=== PATIENT | male | born 1995 | race Caucasian/White ===

== ENCOUNTER 2017-03-25 02:16 | Inpatient (IN) ==
[2017-03-25] MEDS ORDERED: SODIUM CHLORIDE 0.9% 1,000 ML IV STA (03:28)
[2017-03-25] MEDS ORDERED: MORPHINE 2 MG/1 ML SYRINGE IV STA (03:28)
[2017-03-25] MEDS ORDERED: ONDANSETRON 4 MG/2 ML VIAL IV STA (03:28)
[2017-03-25] MEDS ORDERED: MORPHINE 2 MG/1 ML SYRINGE IV PRN ×2 (03:29→09:02)
[2017-03-25 03:53] LABS: Basophils % 0.3 % (0.0-0.8); Eosinophils % 0.1 % (0.00-10.9); Hematocrit 43.9 VOL% (42.0-52.0); Hemoglobin 15.3 GM/DL (14.0-18.0); Immature Granulocytes % 0.2 %; Immature Granulocytes Absolute 0.02 #; Lymphocytes % 15.9 % (21.2-54.2); Mean Corpuscular HGB Conc 34.9 GM/DL (32-36); Mean Corpuscular Hemoglobin 32 PG (27-34); Mean Corpuscular Volume 91.8 FL (87-102); Mean Platelet Volume 8.9 FL (9.6-12.0); Monocytes # 0.7 10*3/uL (0.11-0.8); Monocytes % 5.3 % (1.7-12.7); Neutrophils # 9.7 10*3/uL (1.4-7.4); Neutrophils % 78.2 % (38.7-73.9); Platelet Count 230 T/CUMM (130-400); Red Blood Count 4.78 MC/CUMM (3.8-5.5); Red Cell Distribution Width 12.5 % (9.3-17.3); White Blood Count 12.4 T/CUMM (4-12)
[2017-03-25 04:09] LABS: Lactic Acid 0.8 MMOL/L (0.4-2.0)
[2017-03-25 04:16] LABS: Albumin 3.9 G/DL (3.4-5.0); Bilirubin,Total 0.4 MG/DL (0.2-1.0); Osmolality,Calculated 279.4 MOS/KG (273-304); Potassium 3.9 MMOL/L (3.5-5.1); Total Protein 6.9 G/DL (6.4-8.3)
[2017-03-25] MEDS: LACTATED RINGERS 1,000 ML IV SCH ×4 (04:37→19:41)
[2017-03-25] MEDS ORDERED: cefOXitin 2,000 MG in SYRINGE 1 EACH IV ONE (04:42)
[2017-03-25] MEDS ORDERED: BUPIVACAINE LIPOSOMAL 20 ML/266 MG VIAL ONE (05:48)
[2017-03-25] MEDS ORDERED: ONDANSETRON 4 MG/2 ML VIAL IV PRN (07:30)
[2017-03-25] MEDS ORDERED: HYDROmorphone 2 MG/1 ML VIAL ONE ×2 (07:34→08:01)
[2017-03-25] MEDS ORDERED: ONDANSETRON 4 MG/2 ML VIAL ONE (07:34)
[2017-03-25] MEDS ORDERED: DESFLURANE 1 UNIT/15 MINUTE INH ONE (07:39)
[2017-03-25] MEDS ORDERED: MIDAZOLAM 2 MG/2 ML VIAL ONE (07:39)
[2017-03-25] MEDS ORDERED: PROPOFOL 200 MG/20 ML VIAL IV ONE (07:39)
[2017-03-25] MEDS ORDERED: ACETAMINOPHEN 1,000 MG/100 ML VIAL IV ONE (07:40)
[2017-03-25] MEDS ORDERED: fentaNYL 100 MCG/2 ML VIAL ONE (07:40)
[2017-03-25] MEDS: HYDROmorphone 2 MG/1 ML VIAL IV PRN ×4 (07:40→07:55)
[2017-03-25] MEDS ORDERED: ROCURONIUM 100 MG/10 ML VIAL IV ONE (07:40)
[2017-03-25] MEDS ORDERED: GLYCOPYRROLATE 0.4 MG/2 ML VIAL ONE (07:40)
[2017-03-25] MEDS ORDERED: NEOSTIGMINE 10 MG/10 ML VIAL ONE (07:40)
[2017-03-25] MEDS ORDERED: KETOROLAC 30 MG/1 ML VIAL ONE (07:40)
[2017-03-25] MEDS ORDERED: SUCCINYLCHOLINE 200 MG/10 ML VIAL ONE (07:40)
[2017-03-25] MEDS ORDERED: DEXAMETHASONE 10 MG/1 ML VIAL ONE (07:40)
[2017-03-25] MEDS ORDERED: LACTATED RINGERS 1,000 ML IV ONE (07:41)
[2017-03-25] MEDS ORDERED: NALOXONE 0.4 MG/ML VIAL IV PRN (07:55)
[2017-03-25] MEDS ORDERED: MORPHINE 10 MG/1 ML VIAL ONE (07:56)
[2017-03-25] MEDS ORDERED: LORazepam 2 MG/1 ML VIAL ONE (08:02)
[2017-03-25] MEDS ORDERED: HYDROmorphone 2 MG/1 ML VIAL IV ONE (08:03)
[2017-03-25] MEDS ORDERED: LORazepam 2 MG/1 ML VIAL IV ONE ×2 (08:05→08:10)
[2017-03-25] MEDS ORDERED: HYDROmorphone PCA 30 MG/30 ML SYRINGE IV ONE (08:15)
[2017-03-25] MEDS: HYDROmorphone PCA 30 MG/30 ML SYRINGE IV SCH (08:19)
[2017-03-25 08:30] LABS: Apearance,Urine Slightly Hazy (Clear); Bilirubin,Urine Negative (Negative); Blood, Urine Negative (Negative); Glucose,Urine (UA) Negative (Negative); Ketones,Urine 5 mg/dL (Negative); Mucus,Urine Occasional /LPF (Occasional); Nitrite,Urine Negative (Negative); Protein,Urine Negative; RBC,Urine 2 /HPF (0-4); Urine Color Yellow (Yellow); Urine Specific Gravity 1.034 (1.001-1.035); Urine Urobilinogen < 2.0 EU/DL (0.2-1.0); WBC,Urine 1 /HPF (0-6)
[2017-03-25] MEDS: KETOROLAC 15 MG/1 ML VIAL IV SCH ×3 (10:19→21:14)
[2017-03-25] MEDS: PANTOPRAZOLE 40 MG TABLET PO SCH (10:51)
[2017-03-25] MEDS: fentaNYL 25 MCG/HR PATCH TRANSDERM SCH (11:57)
[2017-03-25] MEDS: MORPHINE 2 MG/1 ML SYRINGE IV PRN ×4 (12:25→22:51)
[2017-03-25] MEDS: HYOSCYAMINE 0.5 MG/1 ML AMP IV PRN ×2 (14:19→21:49)
[2017-03-25] MEDS: cefOXitin 2,000 MG in SYRINGE 1 EACH IV SCH (17:19)
[2017-03-26] MEDS: LACTATED RINGERS 1,000 ML IV SCH ×3 (00:15→20:38)
[2017-03-26] MEDS: cefOXitin 2,000 MG in SYRINGE 1 EACH IV SCH ×3 (01:31→20:01)
[2017-03-26] MEDS: MORPHINE 2 MG/1 ML SYRINGE IV PRN ×3 (01:32→06:44)
[2017-03-26] MEDS: KETOROLAC 15 MG/1 ML VIAL IV SCH ×4 (03:04→21:39)
[2017-03-26] MEDS: HYOSCYAMINE 0.5 MG/1 ML AMP IV PRN (03:05)
[2017-03-26] MEDS: ONDANSETRON 4 MG/2 ML VIAL IV PRN ×2 (03:05→08:30)
[2017-03-26 03:16] LABS: Basophils % 0.1 % (0.0-0.8); Hematocrit 27.4 VOL% (42.0-52.0); Immature Granulocytes % 0.1 %; Immature Granulocytes Absolute 0.01 #; Lymphocytes # 1.2 10*3/uL (1.4-4.0); Lymphocytes % 17.2 % (21.2-54.2); Mean Corpuscular HGB Conc 34.3 GM/DL (32-36); Mean Corpuscular Hemoglobin 32 PG (27-34); Mean Corpuscular Volume 93.8 FL (87-102); Mean Platelet Volume 9.4 FL (9.6-12.0); Monocytes # 0.6 10*3/uL (0.11-0.8); Monocytes % 8.1 % (1.7-12.7); Neutrophils # 5.2 10*3/uL (1.4-7.4); Neutrophils % 74.5 % (38.7-73.9); Platelet Count 218 T/CUMM (130-400); Red Blood Count 2.92 MC/CUMM (3.8-5.5)
[2017-03-26 03:18] LABS: Hemoglobin 9.4 GM/DL (14.0-18.0)
[2017-03-26 03:48] LABS: Calcium 8.5 MG/DL (8.5-10.1); Potassium 4.5 MMOL/L (3.5-5.1)
[2017-03-26] MEDS: HYDROmorphone PCA 30 MG/30 ML SYRINGE IV SCH ×2 (04:05→08:26)
[2017-03-26 06:46] LABS: Band Neutrophils 24 % (0-10); Hypochromasia Slight; Lymphocytes 20 % (20-55); Platelet Estimate Adequate; Segmented Neutrophils 50 % (50-85); Total Cells Counted 100
[2017-03-26] MEDS ORDERED: LACTATED RINGERS 2,000 ML IV ONE (08:05)
[2017-03-26] MEDS: PANTOPRAZOLE 40 MG TABLET PO SCH (10:12)
[2017-03-26] MEDS ORDERED: BUPIVACAINE 0.25% 50 ML VIAL ONE (11:10)
[2017-03-26] MEDS ORDERED: LIDOCAINE 1%/EPI INJ 20 ML VIAL ONE (11:10)
[2017-03-26] MEDS ORDERED: BENZOIN COMPOUND TINCTURE 58 ML BOTTLE TOP ONE (11:44)
[2017-03-26] MEDS ORDERED: LIDOCAINE 2% TOP JELLY 5 ML TUBE TOP ONE (12:30)
[2017-03-26] MEDS ORDERED: SEVOFLURANE 1 UNIT/15 MINUTE INH ONE (12:30)
[2017-03-26] MEDS ORDERED: MIDAZOLAM 2 MG/2 ML VIAL ONE (12:30)
[2017-03-26] MEDS ORDERED: PROPOFOL 200 MG/20 ML VIAL IV ONE (12:30)
[2017-03-26] MEDS ORDERED: fentaNYL 100 MCG/2 ML VIAL ONE (12:30)
[2017-03-26] MEDS ORDERED: ROCURONIUM 100 MG/10 ML VIAL IV ONE (12:31)
[2017-03-26] MEDS ORDERED: DEXAMETHASONE 10 MG/1 ML VIAL ONE (12:31)
[2017-03-26] MEDS ORDERED: KETOROLAC 30 MG/1 ML VIAL ONE (12:31)
[2017-03-26] MEDS ORDERED: PHENYLEPHRINE 0.5% NASAL SPRAY 15 ML BOTTLE BOTH NARES ONE (12:31)
[2017-03-26] MEDS ORDERED: LACTATED RINGERS 1,000 ML IV ONE (12:32)
[2017-03-26 12:52] LABS: ABG Base Excess 1.3 MMOL/L (-2.5-2.5); ABG HCO3 25.6 MMOL/L (20-26); ABG Oxygen Saturation 99.6 % (95-100); ABG PCO2 47.1 MM HG (35-48); ABG PH 7.365 (7.35-7.45); ABG TCO2 25.3 MMOL/L (23-27); Allen Test Positive; Pt O2 Delivery Device Ventilator
[2017-03-26] MEDS: PROPOFOL 1,000 MG/100 ML BOTTLE IV SCH ×3 (15:19→22:33)
[2017-03-26] MEDS ORDERED: cefOXitin 2,000 MG in SYRINGE 1 EACH IV SCH (20:00)
[2017-03-27] MEDS: PROPOFOL 1,000 MG/100 ML BOTTLE IV SCH ×4 (02:58→17:58)
[2017-03-27] MEDS: LACTATED RINGERS 1,000 ML IV SCH ×3 (03:34→20:43)
[2017-03-27 03:55] LABS: ABG Base Excess 5.9 MMOL/L (-2.5-2.5); ABG HCO3 29.8 MMOL/L (20-26); ABG Oxygen Saturation 99.7 % (95-100); ABG PH 7.481 (7.35-7.45); ABG TCO2 28.4 MMOL/L (23-27); Allen Test Positive; Pt O2 Delivery Device Ventilator
[2017-03-27] MEDS: HYDROmorphone PCA 30 MG/30 ML SYRINGE IV SCH ×3 (05:26→23:44)
[2017-03-27] MEDS: KETOROLAC 15 MG/1 ML VIAL IV SCH ×4 (05:29→23:43)
[2017-03-27 06:10] LABS: Basophils % 0.2 % (0.0-0.8); Eosinophils # 0.1 10*3/uL (0.0-0.87); Eosinophils % 1.5 % (0.00-10.9); Hemoglobin 6.8 GM/DL (14.0-18.0); Immature Granulocytes % 0.8 %; Immature Granulocytes Absolute 0.04 #; Lymphocytes # 1.5 10*3/uL (1.4-4.0); Lymphocytes % 28.2 % (21.2-54.2); Mean Corpuscular Hemoglobin 32 PG (27-34); Mean Corpuscular Volume 94.8 FL (87-102); Mean Platelet Volume 9.9 FL (9.6-12.0); Monocytes # 0.6 10*3/uL (0.11-0.8); Monocytes % 10.9 % (1.7-12.7); Neutrophils # 3.1 10*3/uL (1.4-7.4); Neutrophils % 58.4 % (38.7-73.9); Platelet Count 120 T/CUMM (130-400); Red Blood Count 2.11 MC/CUMM (3.8-5.5); Red Cell Distribution Width 13.2 % (9.3-17.3); White Blood Count 5.3 T/CUMM (4-12)
[2017-03-27 06:36] LABS: Band Neutrophils 12 % (0-10); Eosinophils 2 % (0-10); Hypochromasia 1+; Lymphocytes 30 % (20-55); Metamyelocytes 3 %; Segmented Neutrophils 45 % (50-85); Total Cells Counted 100
[2017-03-27 06:37] LABS: Microcytosis Slight; Platelet Estimate Adequate
[2017-03-27 06:54] LABS: Calcium 7.5 MG/DL (8.5-10.1); Osmolality,Calculated 280.4 MOS/KG (273-304); Potassium 4.2 MMOL/L (3.5-5.1)
[2017-03-27] MEDS ORDERED: SODIUM CHLORIDE 0.9% 1,000 ML IV PRN (07:05)
[2017-03-27] MEDS: PANTOPRAZOLE 40 MG VIAL IV SCH (10:54)
[2017-03-27] MEDS ORDERED: SEVOFLURANE 1 UNIT/15 MINUTE INH ONE (12:55)
[2017-03-27] MEDS ORDERED: fentaNYL 100 MCG/2 ML VIAL ONE (12:56)
[2017-03-27] MEDS ORDERED: SUFentanil 50 MCG/ML AMP ONE (12:56)
[2017-03-27] MEDS ORDERED: LACTATED RINGERS 1,000 ML IV ONE (12:56)
[2017-03-27] MEDS ORDERED: VECURONIUM 10 MG VIAL IV ONE (12:56)
[2017-03-27] MEDS ORDERED: MIDAZOLAM 10 MG/2 ML VIAL ONE (12:56)
[2017-03-27 16:35] LABS: ABG Base Excess 5.1 MMOL/L (-2.5-2.5); ABG HCO3 29.1 MMOL/L (20-26); ABG Oxygen Saturation 99.1 % (95-100); ABG PCO2 46.9 MM HG (35-48); ABG PH 7.419 (7.35-7.45); ABG TCO2 27.8 MMOL/L (23-27)
[2017-03-27] MEDS: MORPHINE 2 MG/1 ML SYRINGE IV PRN (17:18)
[2017-03-27 18:40] LABS: Hematocrit 27.7 VOL% (42.0-52.0); Hemoglobin 9.6 GM/DL (14.0-18.0)
[2017-03-28] MEDS: LACTATED RINGERS 1,000 ML IV SCH ×3 (03:33→14:14)
[2017-03-28 04:47] LABS: Basophils # 0.1 10*3/uL (0.0-0.2); Basophils % 0.8 % (0.0-0.8); Eosinophils # 0.1 10*3/uL (0.0-0.87); Eosinophils % 1.8 % (0.00-10.9); Hematocrit 28.9 VOL% (42.0-52.0); Hemoglobin 9.7 GM/DL (14.0-18.0); Immature Granulocytes Absolute 0.06 #; Lymphocytes # 1.2 10*3/uL (1.4-4.0); Lymphocytes % 19.9 % (21.2-54.2); Mean Corpuscular HGB Conc 33.6 GM/DL (32-36); Mean Corpuscular Hemoglobin 31 PG (27-34); Mean Platelet Volume 9.8 FL (9.6-12.0); Monocytes # 0.6 10*3/uL (0.11-0.8); NRBC # 0.02 10*3/uL; Neutrophils % 66.5 % (38.7-73.9); Platelet Count 165 T/CUMM (130-400); Red Blood Count 3.14 MC/CUMM (3.8-5.5); Red Cell Distribution Width 14.6 % (9.3-17.3)
[2017-03-28 05:15] LABS: Calcium 7.8 MG/DL (8.5-10.1)
[2017-03-28] MEDS: KETOROLAC 15 MG/1 ML VIAL IV SCH ×4 (05:24→22:13)
[2017-03-28 05:53] LABS: Band Neutrophils 12 % (0-10); Eosinophils 1 % (0-10); Hypochromasia 1+; Lymphocytes 20 % (20-55); Nucleated Red Blood Cells 2 (0-5); Segmented Neutrophils 59 % (50-85); Total Cells Counted 100
[2017-03-28 05:54] LABS: Platelet Estimate Adequate
[2017-03-28] MEDS: HYDROmorphone PCA 30 MG/30 ML SYRINGE IV SCH ×2 (08:18→16:45)
[2017-03-28] MEDS: PANTOPRAZOLE 40 MG VIAL IV SCH (10:04)
[2017-03-28] MEDS: fentaNYL 25 MCG/HR PATCH TRANSDERM SCH (10:15)
[2017-03-28] MEDS: ONDANSETRON 4 MG/2 ML VIAL IV PRN (13:50)
[2017-03-28] MEDS: PROPOFOL 1,000 MG/100 ML BOTTLE IV SCH (14:13)
[2017-03-28] MEDS: DEXT 5% NACL 0.45% KCL 20 MEQ 20 MEQ/1,000 ML BAG IV SCH (23:54)
[2017-03-29] MEDS: HYDROmorphone PCA 30 MG/30 ML SYRINGE IV SCH ×3 (02:35→15:11)
[2017-03-29] MEDS: DEXT 5% NACL 0.45% KCL 20 MEQ 20 MEQ/1,000 ML BAG IV SCH ×4 (02:53→16:41)
[2017-03-29] MEDS: ONDANSETRON 4 MG/2 ML VIAL IV PRN ×2 (04:01→20:16)
[2017-03-29] MEDS: KETOROLAC 15 MG/1 ML VIAL IV SCH ×4 (04:05→22:17)
[2017-03-29 07:11] LABS: Basophils % 0.7 % (0.0-0.8); Eosinophils # 0.1 10*3/uL (0.0-0.87); Eosinophils % 2.8 % (0.00-10.9); Hematocrit 28.5 VOL% (42.0-52.0); Hemoglobin 9.8 GM/DL (14.0-18.0); Immature Granulocytes % 1.4 %; Immature Granulocytes Absolute 0.06 #; Lymphocytes # 0.9 10*3/uL (1.4-4.0); Lymphocytes % 21.1 % (21.2-54.2); Mean Corpuscular HGB Conc 34.4 GM/DL (32-36); Mean Corpuscular Hemoglobin 31 PG (27-34); Mean Corpuscular Volume 90.5 FL (87-102); Mean Platelet Volume 9.2 FL (9.6-12.0); Monocytes # 1.2 10*3/uL (0.11-0.8); Monocytes % 28.1 % (1.7-12.7); Neutrophils % 45.9 % (38.7-73.9); Platelet Count 204 T/CUMM (130-400); Red Blood Count 3.15 MC/CUMM (3.8-5.5); Red Cell Distribution Width 13.6 % (9.3-17.3); White Blood Count 4.3 T/CUMM (4-12)
[2017-03-29 07:29] LABS: Osmolality,Calculated 276.5 MOS/KG (273-304); Potassium 4.2 MMOL/L (3.5-5.1)
[2017-03-29 07:43] LABS: Band Neutrophils 30 % (0-10); Eosinophils 3 % (0-10); Hypochromasia 1+; Lymphocytes 15 % (20-55); Platelet Estimate Adequate; Polychromasia Slight; Segmented Neutrophils 28 % (50-85); Total Cells Counted 100
[2017-03-29] MEDS: PANTOPRAZOLE 40 MG VIAL IV SCH (08:43)
[2017-03-29] MEDS: metroNIDAZOLE INJ 500 MG in PREMIX 1 EACH IV SCH ×2 (13:15→18:34)
[2017-03-29] MEDS: cefOXitin 2,000 MG in SYRINGE 1 EACH IV SCH ×2 (14:36→22:25)
[2017-03-30] MEDS: DEXT 5% NACL 0.45% KCL 20 MEQ 20 MEQ/1,000 ML BAG IV SCH ×4 (02:01→22:16)
[2017-03-30] MEDS: HYDROmorphone PCA 30 MG/30 ML SYRINGE IV SCH ×4 (02:08→21:19)
[2017-03-30] MEDS: metroNIDAZOLE INJ 500 MG in PREMIX 1 EACH IV SCH ×4 (02:10→21:13)
[2017-03-30] MEDS: KETOROLAC 15 MG/1 ML VIAL IV SCH (03:26)
[2017-03-30 03:56] LABS: Basophils # 0.1 10*3/uL (0.0-0.2); Basophils % 0.8 % (0.0-0.8); Eosinophils # 0.1 10*3/uL (0.0-0.87); Eosinophils % 1.7 % (0.00-10.9); Hematocrit 29.5 VOL% (42.0-52.0); Hemoglobin 10.5 GM/DL (14.0-18.0); Immature Granulocytes % 1.4 %; Immature Granulocytes Absolute 0.09 #; Lymphocytes # 1.3 10*3/uL (1.4-4.0); Lymphocytes % 20.5 % (21.2-54.2); Mean Corpuscular HGB Conc 35.6 GM/DL (32-36); Mean Corpuscular Hemoglobin 32 PG (27-34); Mean Corpuscular Volume 88.6 FL (87-102); Monocytes # 1.7 10*3/uL (0.11-0.8); Monocytes % 26.2 % (1.7-12.7); Neutrophils # 3.2 10*3/uL (1.4-7.4); Neutrophils % 49.4 % (38.7-73.9); Platelet Count 232 T/CUMM (130-400); Red Blood Count 3.33 MC/CUMM (3.8-5.5); Red Cell Distribution Width 13.1 % (9.3-17.3); White Blood Count 6.5 T/CUMM (4-12)
[2017-03-30 04:03] LABS: PT Patient Result 10.6 SECS
[2017-03-30 06:15] LABS: Band Neutrophils 23 % (0-10); Eosinophils 1 % (0-10); Lymphocytes 39 % (20-55); Metamyelocytes 2 %; Myelocytes 2 %; Nucleated Red Blood Cells 1 (0-5); Platelet Estimate Normal; Segmented Neutrophils 23 % (50-85); Total Cells Counted 100
[2017-03-30] MEDS: cefOXitin 2,000 MG in SYRINGE 1 EACH IV SCH ×3 (06:22→21:09)
[2017-03-30] MEDS ORDERED: HYDROmorphone 2 MG/1 ML VIAL IV ONE (08:50)
[2017-03-30] MEDS ORDERED: HYDROmorphone 2 MG/1 ML VIAL ONE (08:51)
[2017-03-30] MEDS: PANTOPRAZOLE 40 MG VIAL IV SCH (10:20)
[2017-03-30 14:19] LABS: Apearance,Urine CLEAR (Clear); Bilirubin,Urine Negative (Negative); Blood, Urine Negative (Negative); Glucose,Urine (UA) Negative (Negative); Hyaline Casts,Urine 1 /LPF (0-3); Ketones,Urine 80 mg/dL (Negative); Mucus,Urine Occasional /LPF (Occasional); Nitrite,Urine Negative (Negative); Protein,Urine 30 MG/DL; RBC,Urine 2 /HPF (0-4); Squamous Epithelial Cell,Urine Occasional /HPF (0-10); Urine Color Amber (Yellow); Urine Specific Gravity 1.024 (1.001-1.035); Urine Urobilinogen < 2.0 EU/DL (0.2-1.0); WBC,Urine 2 /HPF (0-6)
[2017-03-31] MEDS: metroNIDAZOLE INJ 500 MG in PREMIX 1 EACH IV SCH ×4 (00:41→23:28)
[2017-03-31] MEDS: DEXT 5% NACL 0.45% KCL 20 MEQ 20 MEQ/1,000 ML BAG IV SCH ×4 (01:24→20:26)
[2017-03-31] MEDS: HYDROmorphone PCA 30 MG/30 ML SYRINGE IV SCH (05:38)
[2017-03-31] MEDS: cefOXitin 2,000 MG in SYRINGE 1 EACH IV SCH ×3 (05:49→23:12)
[2017-03-31] MEDS: HYDROmorphone 2 MG/1 ML VIAL IV PRN ×5 (08:12→23:23)
[2017-03-31] MEDS: PANTOPRAZOLE 40 MG VIAL IV SCH (08:16)
[2017-03-31] MEDS ORDERED: HYDROmorphone 2 MG/1 ML VIAL IV ONE (09:15)
[2017-03-31] MEDS: fentaNYL 25 MCG/HR PATCH TRANSDERM SCH (11:42)
[2017-03-31] MEDS: ONDANSETRON 4 MG/2 ML VIAL IV PRN (16:25)
[2017-03-31] MEDS: FAT EMULSION 20% 250 ML IV SCH (19:25)
[2017-03-31] MEDS: TRACE ELEMENTS (5) 1 ML, MULTIVITAMIN INJ 10 ML in AMINO ACIDS/DEXT/LYTES 4.25-5% 2,000 ML IV SCH (19:25)
[2017-04-01] MEDS: DEXT 5% NACL 0.45% KCL 20 MEQ 20 MEQ/1,000 ML BAG IV SCH ×2 (01:35→11:18)
[2017-04-01] MEDS: metroNIDAZOLE INJ 500 MG in PREMIX 1 EACH IV SCH ×4 (05:46→19:18)
[2017-04-01] MEDS: ONDANSETRON 4 MG/2 ML VIAL IV PRN ×2 (06:12→15:35)
[2017-04-01] MEDS: HYDROmorphone 2 MG/1 ML VIAL IV PRN ×7 (06:12→23:03)
[2017-04-01] MEDS: cefOXitin 2,000 MG in SYRINGE 1 EACH IV SCH ×3 (06:16→22:42)
[2017-04-01 09:21] LABS: Basophils # 0.1 10*3/uL (0.0-0.2); Basophils % 0.4 % (0.0-0.8); Eosinophils % 0.1 % (0.00-10.9); Hematocrit 33.4 VOL% (42.0-52.0); Hemoglobin 11.7 GM/DL (14.0-18.0); Immature Granulocytes % 4.2 %; Lymphocytes # 1.4 10*3/uL (1.4-4.0); Mean Corpuscular Hemoglobin 31 PG (27-34); Mean Corpuscular Volume 87.2 FL (87-102); Monocytes # 1.4 10*3/uL (0.11-0.8); Monocytes % 9.9 % (1.7-12.7); NRBC # 0.05 10*3/uL; Neutrophils # 10.9 10*3/uL (1.4-7.4); Neutrophils % 75.4 % (38.7-73.9); Platelet Count 346 T/CUMM (130-400); Red Blood Count 3.83 MC/CUMM (3.8-5.5); Red Cell Distribution Width 12.8 % (9.3-17.3); White Blood Count 14.4 T/CUMM (4-12)
[2017-04-01 09:43] LABS: Calcium 8.3 MG/DL (8.5-10.1); Magnesium 2.3 MG/DL (1.8-2.4); Osmolality,Calculated 272.8 MOS/KG (273-304); Phosphorous 3.9 MG/DL (2.5-4.9); Potassium 3.8 MMOL/L (3.5-5.1); Prealbumin 7.1 MG/DL (20-40)
[2017-04-01 10:17] LABS: Band Neutrophils 6 % (0-10); Hypochromasia 1+; Lymphocytes 10 % (20-55); Metamyelocytes 1 %; Segmented Neutrophils 76 % (50-85); Total Cells Counted 100
[2017-04-01] MEDS: PANTOPRAZOLE 40 MG VIAL IV SCH (11:40)
[2017-04-01] MEDS: TRACE ELEMENTS (5) 1 ML, MULTIVITAMIN INJ 10 ML in AMINO ACIDS/DEXT/LYTES 4.25-5% 2,000 ML IV SCH (15:28)
[2017-04-01] MEDS: FAT EMULSION 20% 250 ML IV SCH (15:29)
[2017-04-02] MEDS: HYDROmorphone 2 MG/1 ML VIAL IV PRN ×10 (01:08→22:38)
[2017-04-02] MEDS: metroNIDAZOLE INJ 500 MG in PREMIX 1 EACH IV SCH ×4 (01:08→19:20)
[2017-04-02] MEDS: cefOXitin 2,000 MG in SYRINGE 1 EACH IV SCH ×2 (06:21→17:24)
[2017-04-02] MEDS: PANTOPRAZOLE 40 MG VIAL IV SCH (08:35)
[2017-04-02] MEDS: TRACE ELEMENTS (5) 1 ML, MULTIVITAMIN INJ 10 ML in AMINO ACIDS/DEXT/LYTES 4.25-5% 2,000 ML IV SCH (08:55)
[2017-04-02 11:11] LABS: Basophils # 0.1 10*3/uL (0.0-0.2); Basophils % 0.5 % (0.0-0.8); Eosinophils # 0.1 10*3/uL (0.0-0.87); Eosinophils % 0.5 % (0.00-10.9); Hematocrit 34.7 VOL% (42.0-52.0); Hemoglobin 12.1 GM/DL (14.0-18.0); Immature Granulocytes % 4.4 %; Immature Granulocytes Absolute 0.83 #; Lymphocytes # 1.9 10*3/uL (1.4-4.0); Lymphocytes % 10.1 % (21.2-54.2); Mean Corpuscular HGB Conc 34.9 GM/DL (32-36); Mean Corpuscular Hemoglobin 31 PG (27-34); Mean Corpuscular Volume 88.5 FL (87-102); Mean Platelet Volume 8.9 FL (9.6-12.0); Monocytes # 1.9 10*3/uL (0.11-0.8); Monocytes % 9.9 % (1.7-12.7); NRBC # 0.03 10*3/uL; Neutrophils % 74.6 % (38.7-73.9); Platelet Count 454 T/CUMM (130-400); Red Blood Count 3.92 MC/CUMM (3.8-5.5); Red Cell Distribution Width 13.2 % (9.3-17.3); White Blood Count 18.8 T/CUMM (4-12)
[2017-04-02 11:31] LABS: Band Neutrophils 4 % (0-10); Hypochromasia 1+; Lymphocytes 7 % (20-55); Segmented Neutrophils 79 % (50-85); Total Cells Counted 100
[2017-04-02 11:32] LABS: Platelet Estimate Increased
[2017-04-02 11:37] LABS: Calcium 8.3 MG/DL (8.5-10.1)
[2017-04-02] MEDS: ONDANSETRON 4 MG/2 ML VIAL IV PRN ×2 (12:26→18:16)
[2017-04-02] MEDS: FAT EMULSION 20% 250 ML IV SCH (14:23)
[2017-04-03] MEDS: cefOXitin 2,000 MG in SYRINGE 1 EACH IV SCH ×3 (00:47→17:50)
[2017-04-03] MEDS: HYDROmorphone 2 MG/1 ML VIAL IV PRN ×10 (00:47→21:58)
[2017-04-03] MEDS: metroNIDAZOLE INJ 500 MG in PREMIX 1 EACH IV SCH ×4 (00:50→19:44)
[2017-04-03] MEDS: TRACE ELEMENTS (5) 1 ML, MULTIVITAMIN INJ 10 ML in AMINO ACIDS/DEXT/LYTES 4.25-5% 2,000 ML IV SCH ×3 (01:45→11:14)
[2017-04-03] MEDS: ONDANSETRON 4 MG/2 ML VIAL IV PRN ×4 (02:55→20:53)
[2017-04-03] MEDS: fentaNYL 50 MCG/HR PATCH TRANSDERM SCH (08:47)
[2017-04-03] MEDS: PANTOPRAZOLE 40 MG VIAL IV SCH (09:24)
[2017-04-03 12:09] LABS: Apearance,Urine CLEAR (Clear); Bilirubin,Urine Negative (Negative); Blood, Urine Negative (Negative); Glucose,Urine (UA) Negative (Negative); Ketones,Urine Negative (Negative); Mucus,Urine Occasional /LPF (Occasional); Nitrite,Urine Negative (Negative); Protein,Urine Negative; RBC,Urine 1 /HPF (0-4); Urine Color Yellow (Yellow); Urine Specific Gravity 1.035 (1.001-1.035); Urine Urobilinogen < 2.0 EU/DL (0.2-1.0); WBC,Urine 2 /HPF (0-6)
[2017-04-03] MEDS: ENOXAPARIN 40 MG/0.4 ML SYRINGE SUBCUT SCH (12:20)
[2017-04-03 13:07] LABS: Basophils # 0.2 10*3/uL (0.0-0.2); Basophils % 0.6 % (0.0-0.8); Eosinophils # 0.1 10*3/uL (0.0-0.87); Eosinophils % 0.5 % (0.00-10.9); Hematocrit 36.1 VOL% (42.0-52.0); Hemoglobin 12.7 GM/DL (14.0-18.0); Immature Granulocytes % 5.2 %; Immature Granulocytes Absolute 1.51 #; Lymphocytes # 2.7 10*3/uL (1.4-4.0); Lymphocytes % 9.4 % (21.2-54.2); Mean Corpuscular HGB Conc 35.2 GM/DL (32-36); Mean Corpuscular Hemoglobin 31 PG (27-34); Mean Corpuscular Volume 87.2 FL (87-102); Mean Platelet Volume 8.9 FL (9.6-12.0); Monocytes # 2.4 10*3/uL (0.11-0.8); Monocytes % 8.1 % (1.7-12.7); Neutrophils # 22.2 10*3/uL (1.4-7.4); Neutrophils % 76.2 % (38.7-73.9); Platelet Count 565 T/CUMM (130-400); Red Blood Count 4.14 MC/CUMM (3.8-5.5); White Blood Count 29.1 T/CUMM (4-12)
[2017-04-03 13:26] LABS: Band Neutrophils 1 % (0-10); Eosinophils 1 % (0-10); Lymphocytes 10 % (20-55); Platelet Estimate Increased; Segmented Neutrophils 82 % (50-85); Total Cells Counted 100
[2017-04-03 13:27] LABS: Hypochromasia 1+
[2017-04-03] MEDS: FAT EMULSION 20% 250 ML IV SCH (16:45)
[2017-04-03] MEDS ORDERED: ELECTROLYTE CONCENTRATE 20 ML, TRACE ELEMENTS (5) 1 ML, MULTIVITAMIN INJ 10 ML in STERI... IV SCH (17:00)
[2017-04-03 19:58] LABS: Basophils # 0.2 10*3/uL (0.0-0.2); Basophils % 0.6 % (0.0-0.8); Eosinophils # 0.2 10*3/uL (0.0-0.87); Eosinophils % 0.6 % (0.00-10.9); Hematocrit 36.2 VOL% (42.0-52.0); Immature Granulocytes % 4.5 %; Immature Granulocytes Absolute 1.38 #; Lymphocytes # 3.3 10*3/uL (1.4-4.0); Lymphocytes % 10.8 % (21.2-54.2); Mean Corpuscular HGB Conc 35.9 GM/DL (32-36); Mean Corpuscular Hemoglobin 31 PG (27-34); Mean Corpuscular Volume 86.8 FL (87-102); Mean Platelet Volume 8.7 FL (9.6-12.0); Monocytes # 2.1 10*3/uL (0.11-0.8); Neutrophils # 23.4 10*3/uL (1.4-7.4); Neutrophils % 76.5 % (38.7-73.9); Platelet Count 597 T/CUMM (130-400); Red Blood Count 4.17 MC/CUMM (3.8-5.5); Red Cell Distribution Width 13.2 % (9.3-17.3); White Blood Count 30.6 T/CUMM (4-12)
[2017-04-03 20:35] LABS: Eosinophils 2 % (0-10); Lymphocytes 11 % (20-55); Metamyelocytes 3 %; Segmented Neutrophils 79 % (50-85); Total Cells Counted 100
[2017-04-03 20:36] LABS: Platelet Estimate Increased
[2017-04-04] MEDS: HYDROmorphone 2 MG/1 ML VIAL IV PRN ×11 (00:05→21:48)
[2017-04-04] MEDS: cefOXitin 2,000 MG in SYRINGE 1 EACH IV SCH ×3 (01:02→17:38)
[2017-04-04] MEDS: metroNIDAZOLE INJ 500 MG in PREMIX 1 EACH IV SCH ×4 (01:02→18:43)
[2017-04-04] MEDS: ONDANSETRON 4 MG/2 ML VIAL IV PRN ×3 (04:31→21:50)
[2017-04-04 06:45] LABS: Basophils # 0.2 10*3/uL (0.0-0.2); Basophils % 0.6 % (0.0-0.8); Eosinophils # 0.1 10*3/uL (0.0-0.87); Eosinophils % 0.6 % (0.00-10.9); Hematocrit 35.9 VOL% (42.0-52.0); Hemoglobin 12.7 GM/DL (14.0-18.0); Immature Granulocytes % 4.5 %; Immature Granulocytes Absolute 1.14 #; Lymphocytes # 2.1 10*3/uL (1.4-4.0); Lymphocytes % 8.3 % (21.2-54.2); Mean Corpuscular HGB Conc 35.4 GM/DL (32-36); Mean Corpuscular Hemoglobin 31 PG (27-34); Mean Corpuscular Volume 87.1 FL (87-102); Mean Platelet Volume 9.1 FL (9.6-12.0); Monocytes # 2.1 10*3/uL (0.11-0.8); Monocytes % 8.3 % (1.7-12.7); Neutrophils # 19.7 10*3/uL (1.4-7.4); Neutrophils % 77.7 % (38.7-73.9); Platelet Count 619 T/CUMM (130-400); Red Blood Count 4.12 MC/CUMM (3.8-5.5); Red Cell Distribution Width 13.2 % (9.3-17.3); White Blood Count 25.3 T/CUMM (4-12)
[2017-04-04 07:18] LABS: Albumin 2.6 G/DL (3.4-5.0); Calcium 8.5 MG/DL (8.5-10.1); Osmolality,Calculated 267.4 MOS/KG (273-304); Potassium 4.5 MMOL/L (3.5-5.1); Total Protein 6.9 G/DL (6.4-8.3)
[2017-04-04 07:19] LABS: Band Neutrophils 1 % (0-10); Lymphocytes 8 % (20-55); Metamyelocytes 3 %; Platelet Estimate Increased; Segmented Neutrophils 83 % (50-85); Total Cells Counted 100
[2017-04-04 07:20] LABS: Anisocytosis 1+; Giant Platelets 1+; Microcytosis 1+; Polychromasia Few
[2017-04-04 07:31] LABS: Calcium 8.6 MG/DL (8.5-10.1); Magnesium 2.3 MG/DL (1.8-2.4); Osmolality,Calculated 270.2 MOS/KG (273-304); Phosphorous 3.8 MG/DL (2.5-4.9); Potassium 4.5 MMOL/L (3.5-5.1); Prealbumin 17.7 MG/DL (20-40)
[2017-04-04] MEDS: PANTOPRAZOLE 40 MG VIAL IV SCH (09:30)
[2017-04-04] MEDS: ENOXAPARIN 40 MG/0.4 ML SYRINGE SUBCUT SCH (10:51)
[2017-04-04] MEDS: METOCLOPRAMIDE 10 MG/2 ML VIAL IV SCH ×3 (10:51→21:53)
[2017-04-04] MEDS ORDERED: SIMETHICONE CHEW 80 MG TABLET PO PRN (13:30)
[2017-04-04] MEDS ORDERED: SIMETHICONE CHEW 125 MG TABLET PO PRN (13:41)
[2017-04-04] MEDS: FAT EMULSION 20% 250 ML IV SCH (14:33)
[2017-04-04] MEDS ORDERED: DEXTROSE 10% 1,000 ML IV PRN (17:00)
[2017-04-04] MEDS: TRACE ELEMENTS IV SCH (17:43)
[2017-04-04] MEDS: MULTIVITAMIN IV SCH (17:43)
[2017-04-04] MEDS: ELECTROLYTE IV SCH (17:43)
[2017-04-04] MEDS: [UNRECOGNIZED DRUG - OTHER] IV SCH (17:43)
[2017-04-05] MEDS: HYDROmorphone 2 MG/1 ML VIAL IV PRN ×8 (00:36→22:05)
[2017-04-05] MEDS: cefOXitin 2,000 MG in SYRINGE 1 EACH IV SCH ×3 (00:40→21:15)
[2017-04-05] MEDS: metroNIDAZOLE INJ 500 MG in PREMIX 1 EACH IV SCH ×4 (00:45→21:16)
[2017-04-05] MEDS: ONDANSETRON 4 MG/2 ML VIAL IV PRN (04:54)
[2017-04-05] MEDS: METOCLOPRAMIDE 10 MG/2 ML VIAL IV SCH ×4 (04:57→21:16)
[2017-04-05 06:19] LABS: Basophils # 0.1 10*3/uL (0.0-0.2); Basophils % 0.5 % (0.0-0.8); Eosinophils # 0.1 10*3/uL (0.0-0.87); Eosinophils % 0.6 % (0.00-10.9); Hematocrit 34.9 VOL% (42.0-52.0); Hemoglobin 12.1 GM/DL (14.0-18.0); Immature Granulocytes % 3.9 %; Immature Granulocytes Absolute 0.88 #; Lymphocytes # 2.4 10*3/uL (1.4-4.0); Lymphocytes % 10.5 % (21.2-54.2); Mean Corpuscular HGB Conc 34.7 GM/DL (32-36); Mean Corpuscular Hemoglobin 31 PG (27-34); Mean Corpuscular Volume 88.4 FL (87-102); Mean Platelet Volume 9.2 FL (9.6-12.0); Monocytes # 2.3 10*3/uL (0.11-0.8); Neutrophils # 16.8 10*3/uL (1.4-7.4); Neutrophils % 74.5 % (38.7-73.9); Platelet Count 658 T/CUMM (130-400); Red Blood Count 3.95 MC/CUMM (3.8-5.5); Red Cell Distribution Width 13.2 % (9.3-17.3); White Blood Count 22.6 T/CUMM (4-12)
[2017-04-05 06:42] LABS: Band Neutrophils 1 % (0-10); Burr Cells Slight; Eosinophils 1 % (0-10); Giant Platelets Few; Hypochromasia 1+; Lymphocytes 6 % (20-55); Microcytosis 1+; Ovalocytes Slight; Platelet Estimate Increased; Segmented Neutrophils 76 % (50-85); Total Cells Counted 100
[2017-04-05] MEDS: PANTOPRAZOLE 40 MG VIAL IV SCH (08:37)
[2017-04-05] MEDS ORDERED: BENZOIN COMPOUND TINCTURE 58 ML BOTTLE TOP ONE (09:32)
[2017-04-05] MEDS: LACTATED RINGERS 1,000 ML IV SCH ×2 (09:55→12:14)
[2017-04-05] MEDS ORDERED: HYDROmorphone 2 MG/1 ML VIAL ONE ×3 (10:56→12:23)
[2017-04-05] MEDS ORDERED: ONDANSETRON 4 MG/2 ML VIAL ONE ×2 (10:56→11:06)
[2017-04-05] MEDS ORDERED: MIDAZOLAM 2 MG/2 ML VIAL ONE (11:05)
[2017-04-05] MEDS ORDERED: PROPOFOL 200 MG/20 ML VIAL IV ONE (11:05)
[2017-04-05] MEDS ORDERED: DESFLURANE 1 UNIT/15 MINUTE INH ONE (11:05)
[2017-04-05] MEDS ORDERED: NEOSTIGMINE 10 MG/10 ML VIAL ONE (11:06)
[2017-04-05] MEDS ORDERED: fentaNYL 100 MCG/2 ML VIAL ONE (11:06)
[2017-04-05] MEDS ORDERED: ROCURONIUM 100 MG/10 ML VIAL IV ONE (11:06)
[2017-04-05] MEDS ORDERED: GLYCOPYRROLATE 0.4 MG/2 ML VIAL ONE (11:06)
[2017-04-05 11:10] LABS: Amorphous Crystals,Urine Occasional /HPF (Few); Apearance,Urine Slightly Hazy (Clear); Bilirubin,Urine Negative (Negative); Blood, Urine Negative (Negative); Glucose,Urine (UA) Negative (Negative); Ketones,Urine Negative (Negative); Mucus,Urine Occasional /LPF (Occasional); Nitrite,Urine Negative (Negative); Protein,Urine Negative; RBC,Urine 16 /HPF (0-4); Squamous Epithelial Cell,Urine Occasional /HPF (0-10); Urine Color Amber (Yellow); Urine Specific Gravity 1.031 (1.001-1.035); Urine Urobilinogen < 2.0 EU/DL (0.2-1.0); WBC,Urine <1 /HPF (0-6)
[2017-04-05] MEDS ORDERED: MORPHINE 10 MG/1 ML VIAL ONE ×3 (11:12→11:59)
[2017-04-05] MEDS ORDERED: HYDROmorphone 2 MG/1 ML VIAL IV PRN ×2 (11:15)
[2017-04-05] MEDS: MORPHINE 10 MG/1 ML VIAL IV PRN ×2 (11:15→11:30)
[2017-04-05] MEDS ORDERED: ONDANSETRON 4 MG/2 ML VIAL IV PRN (11:15)
[2017-04-05] MEDS ORDERED: MORPHINE 10 MG/1 ML VIAL IV ONE ×2 (11:40→11:57)
[2017-04-05] MEDS ORDERED: HYDROmorphone 2 MG/1 ML VIAL IV ONE ×2 (11:51→12:24)
[2017-04-05] MEDS ORDERED: MEPERIDINE 25 MG/1 ML VIAL ONE (12:28)
[2017-04-05] MEDS: MEPERIDINE 25 MG/1 ML VIAL IV PRN (12:30)
[2017-04-05] MEDS ORDERED: LABETALOL 100 MG/20 ML VIAL IV ONE (12:55)
[2017-04-05] MEDS: SODIUM HYPOCHLORITE 0.25% IRRIG 473 ML BOTTLE TOP SCH (14:17)
[2017-04-05] MEDS: CHLORHEXIDINE 4% SOLN 118 ML BOTTLE TOP SCH (14:17)
[2017-04-05] MEDS: ENOXAPARIN 40 MG/0.4 ML SYRINGE SUBCUT SCH (14:18)
[2017-04-05] MEDS: MEPERIDINE 50 MG/1 ML VIAL IV PRN ×2 (16:15→23:20)
[2017-04-05] MEDS: FAT EMULSION 20% 250 ML IV SCH (17:41)
[2017-04-05] MEDS: TRACE ELEMENTS IV SCH (17:42)
[2017-04-05] MEDS: ELECTROLYTE IV SCH (17:42)
[2017-04-05] MEDS: [UNRECOGNIZED DRUG - OTHER] IV SCH (17:42)
[2017-04-05] MEDS: MULTIVITAMIN IV SCH (17:42)
[2017-04-06] MEDS ORDERED: HYDROmorphone PCA 30 MG/30 ML SYRINGE IV PRN (00:15)
[2017-04-06] MEDS ORDERED: NALOXONE 0.4 MG/ML VIAL IV PRN (00:15)
[2017-04-06] MEDS: cefOXitin 2,000 MG in SYRINGE 1 EACH IV SCH ×3 (01:11→17:13)
[2017-04-06] MEDS: metroNIDAZOLE INJ 500 MG in PREMIX 1 EACH IV SCH ×4 (01:12→19:11)
[2017-04-06] MEDS: METOCLOPRAMIDE 10 MG/2 ML VIAL IV SCH ×4 (05:24→23:17)
[2017-04-06 06:50] LABS: Osmolality,Calculated 267.5 MOS/KG (273-304)
[2017-04-06 07:21] LABS: Magnesium 2.2 MG/DL (1.8-2.4); Phosphorous 3.8 MG/DL (2.5-4.9); Prealbumin 14.1 MG/DL (20-40)
[2017-04-06] MEDS: fentaNYL 50 MCG/HR PATCH TRANSDERM SCH (08:55)
[2017-04-06] MEDS: PANTOPRAZOLE 40 MG VIAL IV SCH (08:57)
[2017-04-06] MEDS: ENOXAPARIN 40 MG/0.4 ML SYRINGE SUBCUT SCH (08:57)
[2017-04-06] MEDS: FAT EMULSION 20% 250 ML IV SCH (14:38)
[2017-04-06] MEDS: CHLORHEXIDINE 4% SOLN 118 ML BOTTLE TOP SCH (14:45)
[2017-04-06] MEDS: SODIUM HYPOCHLORITE 0.25% IRRIG 473 ML BOTTLE TOP SCH (14:45)
[2017-04-06] MEDS: ONDANSETRON 4 MG/2 ML VIAL IV PRN (15:09)
[2017-04-06] MEDS: MULTIVITAMIN IV SCH (17:44)
[2017-04-06] MEDS: [UNRECOGNIZED DRUG - OTHER] IV SCH (17:44)
[2017-04-06] MEDS: ELECTROLYTE IV SCH (17:44)
[2017-04-06] MEDS: TRACE ELEMENTS IV SCH (17:44)
[2017-04-06] MEDS: HYDROmorphone PCA 30 MG/30 ML SYRINGE IV PRN (21:02)
[2017-04-07] MEDS: metroNIDAZOLE INJ 500 MG in PREMIX 1 EACH IV SCH ×4 (01:05→18:27)
[2017-04-07] MEDS: cefOXitin 2,000 MG in SYRINGE 1 EACH IV SCH ×3 (02:37→17:07)
[2017-04-07] MEDS: METOCLOPRAMIDE 10 MG/2 ML VIAL IV SCH ×4 (04:18→21:14)
[2017-04-07 06:16] LABS: Basophils % 0.4 % (0.0-0.8); Eosinophils % 0.7 % (0.00-10.9)
[2017-04-07 06:48] LABS: Osmolality,Calculated 268.4 MOS/KG (273-304); Potassium 4.7 MMOL/L (3.5-5.1)
[2017-04-07] MEDS: HYDROmorphone 2 MG/1 ML VIAL IV PRN ×3 (07:26→17:15)
[2017-04-07] MEDS: MEPERIDINE 25 MG/1 ML VIAL IV PRN (07:39)
[2017-04-07 08:15] LABS: Basophils # 0.1 10*3/uL (0.0-0.2); Eosinophils # 0.1 10*3/uL (0.0-0.87); Hematocrit 27.9 VOL% (42.0-52.0); Immature Granulocytes % 1.7 %; Immature Granulocytes Absolute 0.28 #; Mean Corpuscular HGB Conc 33.7 GM/DL (32-36); Mean Corpuscular Hemoglobin 31 PG (27-34); Mean Corpuscular Volume 90.9 FL (87-102); Monocytes # 1.5 10*3/uL (0.11-0.8); Monocytes % 9.3 % (1.7-12.7); Neutrophils # 12.4 10*3/uL (1.4-7.4); Neutrophils % 75.9 % (38.7-73.9); Platelet Count 581 T/CUMM (130-400); Red Cell Distribution Width 13.5 % (9.3-17.3); White Blood Count 16.4 T/CUMM (4-12)
[2017-04-07 08:18] LABS: Hemoglobin 9.4 GM/DL (14.0-18.0); Red Blood Count 3.07 MC/CUMM (3.8-5.5)
[2017-04-07 09:35] LABS: Band Neutrophils 2 % (0-10); Hypochromasia 1+; Lymphocytes 11 % (20-55); Segmented Neutrophils 78 % (50-85); Total Cells Counted 100
[2017-04-07 09:36] LABS: Microcytosis 1+; Platelet Estimate Increased
[2017-04-07] MEDS: PANTOPRAZOLE 40 MG VIAL IV SCH (10:32)
[2017-04-07] MEDS: CHLORHEXIDINE 4% SOLN 118 ML BOTTLE TOP SCH (10:34)
[2017-04-07] MEDS: SODIUM HYPOCHLORITE 0.25% IRRIG 473 ML BOTTLE TOP SCH (10:34)
[2017-04-07] MEDS: ENOXAPARIN 40 MG/0.4 ML SYRINGE SUBCUT SCH (10:34)
[2017-04-07] MEDS: FAT EMULSION 20% 250 ML IV SCH (13:48)
[2017-04-07] MEDS: TRACE ELEMENTS IV SCH (17:07)
[2017-04-07] MEDS: MULTIVITAMIN IV SCH (17:07)
[2017-04-07] MEDS: ELECTROLYTE IV SCH (17:07)
[2017-04-07] MEDS: [UNRECOGNIZED DRUG - OTHER] IV SCH (17:07)
[2017-04-07] MEDS: ONDANSETRON 4 MG/2 ML VIAL IV PRN ×2 (17:15→23:10)
[2017-04-08] MEDS: metroNIDAZOLE INJ 500 MG in PREMIX 1 EACH IV SCH ×4 (01:06→19:29)
[2017-04-08] MEDS: cefOXitin 2,000 MG in SYRINGE 1 EACH IV SCH ×3 (01:06→17:30)
[2017-04-08] MEDS: METOCLOPRAMIDE 10 MG/2 ML VIAL IV SCH ×4 (03:21→23:00)
[2017-04-08] MEDS: HYDROmorphone PCA 30 MG/30 ML SYRINGE IV PRN (03:22)
[2017-04-08] MEDS: ONDANSETRON 4 MG/2 ML VIAL IV PRN ×4 (05:13→23:04)
[2017-04-08 06:51] LABS: Basophils # 0.1 10*3/uL (0.0-0.2); Basophils % 0.4 % (0.0-0.8); Eosinophils # 0.2 10*3/uL (0.0-0.87); Eosinophils % 1.4 % (0.00-10.9); Hematocrit 27.2 VOL% (42.0-52.0); Hemoglobin 9.3 GM/DL (14.0-18.0); Immature Granulocytes % 1.3 %; Immature Granulocytes Absolute 0.17 #; Lymphocytes # 1.7 10*3/uL (1.4-4.0); Lymphocytes % 13.8 % (21.2-54.2); Mean Corpuscular HGB Conc 34.2 GM/DL (32-36); Mean Corpuscular Hemoglobin 31 PG (27-34); Mean Platelet Volume 8.7 FL (9.6-12.0); Monocytes # 1.2 10*3/uL (0.11-0.8); Monocytes % 9.3 % (1.7-12.7); Neutrophils # 9.3 10*3/uL (1.4-7.4); Neutrophils % 73.8 % (38.7-73.9); Platelet Count 583 T/CUMM (130-400); Red Blood Count 2.99 MC/CUMM (3.8-5.5); Red Cell Distribution Width 13.2 % (9.3-17.3); White Blood Count 12.7 T/CUMM (4-12)
[2017-04-08] MEDS: CHLORHEXIDINE 4% SOLN 118 ML BOTTLE TOP SCH (10:09)
[2017-04-08] MEDS: SODIUM HYPOCHLORITE 0.25% IRRIG 473 ML BOTTLE TOP SCH (10:09)
[2017-04-08] MEDS: PANTOPRAZOLE 40 MG VIAL IV SCH (10:53)
[2017-04-08] MEDS: ENOXAPARIN 40 MG/0.4 ML SYRINGE SUBCUT SCH (10:53)
[2017-04-08] MEDS: FAT EMULSION 20% 250 ML IV SCH (15:40)
[2017-04-08] MEDS: [UNRECOGNIZED DRUG - OTHER] IV SCH (17:20)
[2017-04-08] MEDS: ELECTROLYTE IV SCH (17:20)
[2017-04-08] MEDS: TRACE ELEMENTS IV SCH (17:20)
[2017-04-08] MEDS: MULTIVITAMIN IV SCH (17:20)
[2017-04-08] MEDS: HYDROmorphone 2 MG/1 ML VIAL IV PRN (23:05)
[2017-04-09] MEDS: cefOXitin 2,000 MG in SYRINGE 1 EACH IV SCH ×3 (00:20→18:38)
[2017-04-09] MEDS: HYDROmorphone PCA 30 MG/30 ML SYRINGE IV PRN (00:20)
[2017-04-09] MEDS: metroNIDAZOLE INJ 500 MG in PREMIX 1 EACH IV SCH ×4 (00:20→18:38)
[2017-04-09] MEDS: HYDROmorphone 2 MG/1 ML VIAL IV PRN ×5 (01:56→20:56)
[2017-04-09] MEDS: METOCLOPRAMIDE 10 MG/2 ML VIAL IV SCH ×4 (04:59→21:06)
[2017-04-09] MEDS: ONDANSETRON 4 MG/2 ML VIAL IV PRN ×3 (05:21→20:56)
[2017-04-09] MEDS: PANTOPRAZOLE 40 MG VIAL IV SCH (09:34)
[2017-04-09] MEDS: CHLORHEXIDINE 4% SOLN 118 ML BOTTLE TOP SCH (10:32)
[2017-04-09] MEDS: SODIUM HYPOCHLORITE 0.25% IRRIG 473 ML BOTTLE TOP SCH (10:33)
[2017-04-09] MEDS: fentaNYL 50 MCG/HR PATCH TRANSDERM SCH (10:53)
[2017-04-09] MEDS: ENOXAPARIN 40 MG/0.4 ML SYRINGE SUBCUT SCH (10:55)
[2017-04-09] MEDS: FAT EMULSION 20% 250 ML IV SCH (15:30)
[2017-04-09] MEDS: ELECTROLYTE IV SCH (18:37)
[2017-04-09] MEDS: [UNRECOGNIZED DRUG - OTHER] IV SCH (18:37)
[2017-04-09] MEDS: MULTIVITAMIN IV SCH (18:37)
[2017-04-09] MEDS: TRACE ELEMENTS IV SCH (18:37)
[2017-04-10] MEDS: HYDROmorphone 2 MG/1 ML VIAL IV PRN ×3 (00:21→06:16)
[2017-04-10] MEDS: metroNIDAZOLE INJ 500 MG in PREMIX 1 EACH IV SCH ×4 (00:22→20:39)
[2017-04-10] MEDS: cefOXitin 2,000 MG in SYRINGE 1 EACH IV SCH ×3 (00:22→18:04)
[2017-04-10] MEDS: ONDANSETRON 4 MG/2 ML VIAL IV PRN ×2 (03:23→09:56)
[2017-04-10] MEDS: METOCLOPRAMIDE 10 MG/2 ML VIAL IV SCH ×4 (03:23→21:41)
[2017-04-10 05:05] LABS: Basophils # 0.1 10*3/uL (0.0-0.2); Basophils % 0.4 % (0.0-0.8); Eosinophils # 0.2 10*3/uL (0.0-0.87); Eosinophils % 1.6 % (0.00-10.9); Hematocrit 28.9 VOL% (42.0-52.0); Hemoglobin 9.8 GM/DL (14.0-18.0); Immature Granulocytes % 0.9 %; Immature Granulocytes Absolute 0.13 #; Lymphocytes # 1.6 10*3/uL (1.4-4.0); Lymphocytes % 11.6 % (21.2-54.2); Mean Corpuscular HGB Conc 33.9 GM/DL (32-36); Mean Corpuscular Hemoglobin 31 PG (27-34); Mean Corpuscular Volume 90.3 FL (87-102); Mean Platelet Volume 8.4 FL (9.6-12.0); Monocytes # 1.3 10*3/uL (0.11-0.8); Monocytes % 9.1 % (1.7-12.7); Neutrophils # 10.7 10*3/uL (1.4-7.4); Neutrophils % 76.4 % (38.7-73.9); Platelet Count 614 T/CUMM (130-400); Red Cell Distribution Width 13.2 % (9.3-17.3)
[2017-04-10 05:29] LABS: Magnesium 1.9 MG/DL (1.8-2.4); Osmolality,Calculated 271.1 MOS/KG (273-304); Potassium 4.2 MMOL/L (3.5-5.1); Prealbumin 14.3 MG/DL (20-40)
[2017-04-10 05:39] LABS: Albumin 2.2 G/DL (3.4-5.0); Bilirubin,Total 0.6 MG/DL (0.2-1.0); Calcium 8.3 MG/DL (8.5-10.1); Osmolality,Calculated 271.1 MOS/KG (273-304); Potassium 4.2 MMOL/L (3.5-5.1); Total Protein 6.2 G/DL (6.4-8.3)
[2017-04-10] MEDS: HYDROmorphone PCA 30 MG/30 ML SYRINGE IV PRN (06:16)
[2017-04-10] MEDS: MORPHINE 2 MG/1 ML SYRINGE IV PRN ×4 (08:57→21:34)
[2017-04-10] MEDS: ENOXAPARIN 40 MG/0.4 ML SYRINGE SUBCUT SCH (09:41)
[2017-04-10] MEDS: PANTOPRAZOLE 40 MG VIAL IV SCH (09:41)
[2017-04-10] MEDS: CHLORHEXIDINE 4% SOLN 118 ML BOTTLE TOP SCH (10:10)
[2017-04-10] MEDS: SODIUM HYPOCHLORITE 0.25% IRRIG 473 ML BOTTLE TOP SCH (10:10)
[2017-04-10] MEDS: oxyCODONE/ACETAMINOPHEN 5-325 MG TABLET PO PRN ×4 (10:58→22:38)
[2017-04-10] MEDS: FAT EMULSION 20% 250 ML IV SCH (14:55)
[2017-04-11] MEDS: MORPHINE 2 MG/1 ML SYRINGE IV PRN ×4 (01:33→15:17)
[2017-04-11] MEDS: metroNIDAZOLE INJ 500 MG in PREMIX 1 EACH IV SCH ×4 (01:34→18:45)
[2017-04-11] MEDS: cefOXitin 2,000 MG in SYRINGE 1 EACH IV SCH (01:42)
[2017-04-11] MEDS: oxyCODONE/ACETAMINOPHEN 5-325 MG TABLET PO PRN ×5 (02:41→20:31)
[2017-04-11] MEDS: METOCLOPRAMIDE 10 MG/2 ML VIAL IV SCH ×4 (04:15→22:03)
[2017-04-11 04:48] LABS: Basophils # 0.1 10*3/uL (0.0-0.2); Basophils % 0.5 % (0.0-0.8); Eosinophils # 0.2 10*3/uL (0.0-0.87); Eosinophils % 1.5 % (0.00-10.9); Hematocrit 28.9 VOL% (42.0-52.0); Hemoglobin 9.9 GM/DL (14.0-18.0); Immature Granulocytes % 0.7 %; Immature Granulocytes Absolute 0.09 #; Lymphocytes % 15.6 % (21.2-54.2); Mean Corpuscular HGB Conc 34.3 GM/DL (32-36); Mean Corpuscular Hemoglobin 31 PG (27-34); Mean Platelet Volume 8.4 FL (9.6-12.0); Monocytes # 1.3 10*3/uL (0.11-0.8); Neutrophils % 71.7 % (38.7-73.9); Platelet Count 561 T/CUMM (130-400); Red Blood Count 3.21 MC/CUMM (3.8-5.5); Red Cell Distribution Width 13.4 % (9.3-17.3); White Blood Count 12.5 T/CUMM (4-12)
[2017-04-11] MEDS: SODIUM HYPOCHLORITE 0.25% IRRIG 473 ML BOTTLE TOP SCH (08:42)
[2017-04-11] MEDS: CHLORHEXIDINE 4% SOLN 118 ML BOTTLE TOP SCH (08:42)
[2017-04-11] MEDS: PANTOPRAZOLE 40 MG VIAL IV SCH (09:59)
[2017-04-11] MEDS: ENOXAPARIN 40 MG/0.4 ML SYRINGE SUBCUT SCH (09:59)
[2017-04-11] MEDS: CIPROFLOXACIN INJ 400 MG in PREMIX 1 EACH IV SCH ×2 (09:59→22:02)
[2017-04-12] MEDS: metroNIDAZOLE INJ 500 MG in PREMIX 1 EACH IV SCH ×2 (00:22→06:16)
[2017-04-12] MEDS: oxyCODONE/ACETAMINOPHEN 5-325 MG TABLET PO PRN ×3 (00:23→10:15)
[2017-04-12] MEDS: METOCLOPRAMIDE 10 MG/2 ML VIAL IV SCH ×2 (05:16→10:15)
[2017-04-12] MEDS: CHLORHEXIDINE 4% SOLN 118 ML BOTTLE TOP SCH (08:25)
[2017-04-12] MEDS: SODIUM HYPOCHLORITE 0.25% IRRIG 473 ML BOTTLE TOP SCH (08:25)
[2017-04-12] MEDS: PANTOPRAZOLE 40 MG VIAL IV SCH (10:15)
[2017-04-12] MEDS: ENOXAPARIN 40 MG/0.4 ML SYRINGE SUBCUT SCH (10:16)
[2017-04-12] MEDS: CIPROFLOXACIN INJ 400 MG in PREMIX 1 EACH IV SCH (10:17)
[2017-04-12] MEDS: fentaNYL 50 MCG/HR PATCH TRANSDERM SCH (10:17)
[2017-04-12 11:25] VITALS: BP 96/62
== END 2017-04-12 13:30 | disposition home health service (06) | DRG 329 ==
LOC: EDUNIT# → N.ED 02:16 → N.EDINP 03:29 → SUPCPDRO 03:29 → N.3E 05:29 → N.ICU 03-26 12:40 → N.3E 03-28 17:31
PROVIDERS: ADMIT Surgery; ATTEND Surgery

== ENCOUNTER 2017-05-18 08:14 | Inpatient (IN) ==
[2017-05-18] MEDS ORDERED: ONDANSETRON 4 MG/2 ML VIAL IV STA (08:36)
[2017-05-18] MEDS ORDERED: PIPERACILLIN/TAZOBACTAM 3,375 MG in SODIUM CHLORIDE 0.9% 100 ML IV STA (08:36)
[2017-05-18] MEDS ORDERED: HYDROmorphone 2 MG/1 ML VIAL IV PRN (08:36)
[2017-05-18] MEDS ORDERED: SODIUM CHLORIDE 0.9% 1,000 ML IV STA (08:36)
[2017-05-18] MEDS ORDERED: ONDANSETRON 4 MG/2 ML VIAL ONE ×2 (08:54→09:07)
[2017-05-18] MEDS ORDERED: HYDROmorphone 2 MG/1 ML VIAL ONE (08:55)
[2017-05-18] MEDS ORDERED: PIPERACILLIN/TAZOBACTAM 3,375 MG VIAL IV ONE (09:01)
[2017-05-18 09:11] LABS: Basophils # 0.1 10*3/uL (0.0-0.2); Basophils % 1.1 % (0.0-0.8); Eosinophils # 0.1 10*3/uL (0.0-0.87); Eosinophils % 1.2 % (0.00-10.9); Hematocrit 42.7 VOL% (42.0-52.0); Hemoglobin 14.1 GM/DL (14.0-18.0); Immature Granulocytes % 0.2 %; Immature Granulocytes Absolute 0.02 #; Lymphocytes # 2.7 10*3/uL (1.4-4.0); Lymphocytes % 29.9 % (21.2-54.2); Mean Corpuscular Hemoglobin 30 PG (27-34); Mean Corpuscular Volume 89.5 FL (87-102); Mean Platelet Volume 8.4 FL (9.6-12.0); Monocytes # 0.8 10*3/uL (0.11-0.8); Monocytes % 8.5 % (1.7-12.7); Neutrophils # 5.3 10*3/uL (1.4-7.4); Neutrophils % 59.1 % (38.7-73.9); Platelet Count 361 T/CUMM (130-400); Red Blood Count 4.77 MC/CUMM (3.8-5.5); Red Cell Distribution Width 13.1 % (9.3-17.3); White Blood Count 8.9 T/CUMM (4-12)
[2017-05-18 09:35] LABS: Lactic Acid 3.4 MMOL/L (0.4-2.0)
[2017-05-18 09:37] LABS: Alanine Aminotransferase 32 U/L (16-61); Albumin 3.9 G/DL (3.4-5.0); Alkaline Phosphatase 62 U/L (45-117); Aspartate Amino Transferase 17 U/L (0-37); Bilirubin,Total < 0.39 MG/DL (0.2-1.0); Blood Urea Nitrogen 10 MG/DL (7-18); Calcium 9.7 MG/DL (8.5-10.1); Glucose 97 MG/DL (74-106); Osmolality,Calculated 277.4 MOS/KG (273-304); Potassium 3.7 MMOL/L (3.5-5.1); Sodium 140 MMOL/L (136-145); Total Protein 7.8 G/DL (6.4-8.3)
[2017-05-18 10:46] LABS: Apearance,Urine CLEAR (Clear); Bilirubin,Urine Negative (Negative); Blood, Urine Negative (Negative); Glucose,Urine (UA) Negative (Negative); Ketones,Urine Negative (Negative); Nitrite,Urine Negative (Negative); Protein,Urine Negative; RBC,Urine 1 /HPF (0-4); Urine Color Yellow (Yellow); Urine Specific Gravity 1.034 (1.001-1.035); Urine Urobilinogen < 2.0 EU/DL (0.2-1.0); WBC,Urine <1 /HPF (0-6)
[2017-05-18] MEDS ORDERED: ACETAMINOPHEN 325 MG TABLET PO PRN (12:33)
[2017-05-18] MEDS: HYDROmorphone 2 MG/1 ML VIAL IV PRN ×5 (12:47→21:50)
[2017-05-18] MEDS: LACTATED RINGERS 1,000 ML IV SCH ×2 (14:43→23:51)
[2017-05-18] MEDS: ONDANSETRON 4 MG/2 ML VIAL IV PRN ×2 (17:43→23:50)
[2017-05-18] MEDS ORDERED: HYDROmorphone 2 MG/1 ML VIAL IV ONE (17:48)
[2017-05-19] MEDS: HYDROmorphone 2 MG/1 ML VIAL IV PRN ×8 (01:33→23:15)
[2017-05-19 05:29] LABS: Basophils # 0.1 10*3/uL (0.0-0.2); Eosinophils # 0.2 10*3/uL (0.0-0.87); Eosinophils % 2.3 % (0.00-10.9); Hematocrit 35.8 VOL% (42.0-52.0); Hemoglobin 11.7 GM/DL (14.0-18.0); Immature Granulocytes % 0.3 %; Immature Granulocytes Absolute 0.02 #; Lymphocytes # 2.1 10*3/uL (1.4-4.0); Lymphocytes % 29.6 % (21.2-54.2); Mean Corpuscular HGB Conc 32.7 GM/DL (32-36); Mean Corpuscular Hemoglobin 30 PG (27-34); Mean Corpuscular Volume 90.9 FL (87-102); Mean Platelet Volume 8.7 FL (9.6-12.0); Monocytes # 0.9 10*3/uL (0.11-0.8); Neutrophils # 3.8 10*3/uL (1.4-7.4); Neutrophils % 53.8 % (38.7-73.9); Platelet Count 279 T/CUMM (130-400); Red Blood Count 3.94 MC/CUMM (3.8-5.5); Red Cell Distribution Width 13.1 % (9.3-17.3); White Blood Count 7.1 T/CUMM (4-12)
[2017-05-19 05:54] LABS: Albumin 3.5 G/DL (3.4-5.0); Bilirubin,Total 1.2 MG/DL (0.2-1.0); Calcium 9.3 MG/DL (8.5-10.1); Osmolality,Calculated 271.7 MOS/KG (273-304); Potassium 3.7 MMOL/L (3.5-5.1); Total Protein 6.5 G/DL (6.4-8.3)
[2017-05-19] MEDS: PANTOPRAZOLE 40 MG TABLET PO SCH (08:07)
[2017-05-19] MEDS: LACTATED RINGERS 1,000 ML IV SCH ×2 (10:16→16:38)
[2017-05-19] MEDS: ONDANSETRON 4 MG/2 ML VIAL IV PRN ×2 (11:10→20:27)
[2017-05-19] MEDS: BISACODYL 10 MG SUPP RECTAL SCH ×3 (12:14→20:36)
[2017-05-19] MEDS: DOCUSATE SODIUM 100 MG CAPSULE PO SCH ×2 (12:14→21:33)
[2017-05-19] MEDS: CIPROFLOXACIN INJ 400 MG in PREMIX 1 EACH IV SCH ×2 (12:14→21:30)
[2017-05-19] MEDS: metroNIDAZOLE INJ 500 MG in PREMIX 1 EACH IV SCH ×2 (13:42→20:17)
[2017-05-20] MEDS: HYDROmorphone 2 MG/1 ML VIAL IV PRN ×7 (02:22→22:05)
[2017-05-20] MEDS: LACTATED RINGERS 1,000 ML IV SCH ×3 (04:05→22:13)
[2017-05-20 04:11] LABS: Basophils # 0.1 10*3/uL (0.0-0.2); Basophils % 0.9 % (0.0-0.8); Eosinophils # 0.1 10*3/uL (0.0-0.87); Eosinophils % 2.6 % (0.00-10.9); Hematocrit 35.4 VOL% (42.0-52.0); Hemoglobin 11.3 GM/DL (14.0-18.0); Immature Granulocytes % 0.2 %; Immature Granulocytes Absolute 0.01 #; Lymphocytes # 1.8 10*3/uL (1.4-4.0); Lymphocytes % 33.1 % (21.2-54.2); Mean Corpuscular HGB Conc 31.9 GM/DL (32-36); Mean Corpuscular Hemoglobin 29 PG (27-34); Mean Corpuscular Volume 90.5 FL (87-102); Mean Platelet Volume 8.8 FL (9.6-12.0); Monocytes # 0.7 10*3/uL (0.11-0.8); Monocytes % 12.1 % (1.7-12.7); Neutrophils # 2.7 10*3/uL (1.4-7.4); Neutrophils % 51.1 % (38.7-73.9); Platelet Count 260 T/CUMM (130-400); Red Blood Count 3.91 MC/CUMM (3.8-5.5); White Blood Count 5.4 T/CUMM (4-12)
[2017-05-20] MEDS: PANTOPRAZOLE 40 MG TABLET PO SCH (08:29)
[2017-05-20] MEDS: DOCUSATE SODIUM 100 MG CAPSULE PO SCH ×2 (08:36→20:40)
[2017-05-20] MEDS: CIPROFLOXACIN INJ 400 MG in PREMIX 1 EACH IV SCH ×2 (08:37→21:59)
[2017-05-20] MEDS: BISACODYL 10 MG SUPP RECTAL SCH ×2 (10:15→20:45)
[2017-05-20] MEDS: metroNIDAZOLE INJ 500 MG in PREMIX 1 EACH IV SCH ×2 (10:22→20:39)
[2017-05-20] MEDS: oxyCODONE/ACETAMINOPHEN 5-325 MG TABLET PO PRN ×2 (10:26→17:34)
[2017-05-20] MEDS: ONDANSETRON 4 MG/2 ML VIAL IV PRN (10:28)
[2017-05-20] MEDS ORDERED: oxyCODONE/ACETAMINOPHEN 5-325 MG TABLET PO PRN (11:01)
[2017-05-21] MEDS: oxyCODONE/ACETAMINOPHEN 5-325 MG TABLET PO PRN ×4 (00:57→21:26)
[2017-05-21] MEDS: HYDROmorphone 2 MG/1 ML VIAL IV PRN ×6 (03:36→23:57)
[2017-05-21] MEDS: ONDANSETRON 4 MG/2 ML VIAL IV PRN ×2 (03:40→18:00)
[2017-05-21] MEDS: LACTATED RINGERS 1,000 ML IV SCH ×3 (08:47→19:21)
[2017-05-21] MEDS ORDERED: SUMAtriptan 25 MG TABLET PO PRN (10:44)
[2017-05-21] MEDS: DOCUSATE SODIUM 100 MG CAPSULE PO SCH ×2 (10:57→20:18)
[2017-05-21] MEDS: CIPROFLOXACIN INJ 400 MG in PREMIX 1 EACH IV SCH ×2 (10:58→21:22)
[2017-05-21] MEDS: BISACODYL 10 MG SUPP RECTAL SCH ×2 (10:59→20:15)
[2017-05-21] MEDS: PANTOPRAZOLE 40 MG TABLET PO SCH (11:06)
[2017-05-21] MEDS: metroNIDAZOLE INJ 500 MG in PREMIX 1 EACH IV SCH ×2 (12:48→20:18)
[2017-05-21] MEDS: PROPRANOLOL 20 MG TABLET PO SCH (20:18)
[2017-05-22] MEDS: HYDROmorphone 2 MG/1 ML VIAL IV PRN ×2 (04:38→08:08)
[2017-05-22] MEDS: oxyCODONE/ACETAMINOPHEN 5-325 MG TABLET PO PRN ×2 (05:51→11:36)
[2017-05-22] MEDS: LACTATED RINGERS 1,000 ML IV SCH ×2 (06:00→09:40)
[2017-05-22] MEDS: PANTOPRAZOLE 40 MG TABLET PO SCH (08:13)
[2017-05-22] MEDS: metroNIDAZOLE INJ 500 MG in PREMIX 1 EACH IV SCH (08:13)
[2017-05-22] MEDS: DOCUSATE SODIUM 100 MG CAPSULE PO SCH (08:13)
[2017-05-22] MEDS: BISACODYL 10 MG SUPP RECTAL SCH (08:14)
[2017-05-22] MEDS: PROPRANOLOL 20 MG TABLET PO SCH (08:14)
[2017-05-22] MEDS: ONDANSETRON 4 MG/2 ML VIAL IV PRN (08:23)
[2017-05-22] MEDS: CIPROFLOXACIN INJ 400 MG in PREMIX 1 EACH IV SCH (09:17)
[2017-05-22 16:00] VITALS: BP 113/62
== END 2017-05-22 18:25 | disposition home health service (06) | DRG 389 ==
LOC: N.ED 08:14 → N.EDINP 08:14 → N.3E 12:32
PROVIDERS: ADMIT Surgery; ATTEND Surgery